=== PATIENT | male | born 1955 | race Caucasian/White ===

== ENCOUNTER 2017-10-17 22:26 | Emergency (ER) | payer MEDICAID ==
[2017-10-17] MEDS ORDERED: DIPHENHYDRAMINE HCL IV 50 MG/ML VIAL IVP ONE (22:34)
[2017-10-17] MEDS ORDERED: METHYLPREDNISOLONE PF 125MG/VIAL IVP ONE (22:34)
[2017-10-17] MEDS ORDERED: FAMOTIDINE IV 20 MG/2 ML VIAL IVP ONE (22:34)
--- NOTE | 2017-10-17 22:42 | Emergency Department Record ---
History of Present Illness - General Chief complaint: Allergic Reaction Stated complaint: ALLERGIC REACTION Time Seen by Provider: 10/17/17 22:34 Source: Patient Mode of Arrival: Ambulatory Limitations: No limitations - History of Present Illness Initial Comments: 61 yo male presents to ED for evaluation of progressively worsening tongue swelling for the past 2 hours. Patient reports that his symptoms began after eating dinner tonight at a restaurant. Patient reports similar symptoms 4 years ago related to Lisinopril, reports that he has not taken the medication since that time. Patient denies throat swelling, rash, or wheezing symptoms. Patient denies chest pain or recent illness. MD Complaint: Allergic reaction Onset/Timin -: Hour(s) Exposure: Food Symptoms: Orolingual swelling Severity: Moderate Treatment Prior to Arrival: None Previous Allergy History: Angioedema - Related Data Home Medications Medication Instructions Recorded Confirmed Last Taken Adalimumab [Humira] 20 mg SQ ASDIR 10/17/17 10/17/17 Unknown Amlodipine Besylate [Norvasc] 10 mg PO DAILY 10/17/17 10/17/17 Unknown Aspirin Chewable 81 mg PO DAILY 10/17/17 10/17/17 Unknown Bupropion HCl [Wellbutrin Sr] 150 mg PO BID 10/17/17 10/17/17 Unknown Colchicine [Colcrys] 0.6 mg PO Q12H PRN 10/17/17 10/17/17 Unknown Gemfibrozil [Lopid] 600 mg PO BID 10/17/17 10/17/17 Unknown Levothyroxine Sodium [Synthroid] 175 mcg PO DAILY 10/17/17 10/17/17 Unknown Metformin HCl 500 mg PO BID 10/17/17 10/17/17 Unknown Multivitamin [Multi-Vitamin Daily] 1 each PO DAILY 10/17/17 10/17/17 Unknown Omeprazole 20 mg PO DAILY 10/17/17 10/17/17 Unknown Pravastatin Sodium [Pravachol] 20 mg PO DAILY 10/17/17 10/17/17 Unknown Ranitidine HCl 150 mg PO BID 10/17/17 10/17/17 Unknown Sulfasalazine [Azulfidine] 500 mg PO BID 10/17/17 10/17/17 Unknown Allergies Allergy/AdvReac Type Severity Reaction Status Date / Time clindamycin Allergy SWELLING Verified 02/21/16 13:55 OF THE TONGUE lisinopril Allergy SWELLING Verified 02/21/16 13:55 OF THE TONGUE Review of Systems Constitutional: Denies: Chills, Fever, Malaise, Night sweats Eyes: Denies: Eye discharge, Eye pain ENT: Reports: Other (tongue swelling). Denies: Congestion, Ear pain, Epistaxis Respiratory: Denies: Cough, Dyspnea Cardiovascular: Denies: Chest pain, Dyspnea on exertion Endocrine: Denies: Fatigue, Heat or cold intolerance Gastrointestinal: Denies: Abdominal pain, Nausea, Vomiting Genitourinary: Denies: Incontinence, Retention Musculoskeletal: Denies: Arthralgia, Back pain, Gout, Joint swelling Skin: Denies: Bruising, Change in color Neurological: Denies: Abnormal gait, Confusion, Headache, Seizure Psychiatric: Denies: Anxiety Hematological/Lymphatic: Denies: Anemia, Blood Clots Past Medical History - SOCIAL HISTORY Smoking Status: Former smoker Alcohol Use Comment: a bottle of margarittas every 2 days, no alcohol for 3 days. - RESPIRATORY Hx Respiratory Disorders: No - CARDIOVASCULAR Hx Cardio Disorders: Yes Hx Hypertension: Yes (on meds good control) Comment:: high cholesterol - NEURO Hx Neuro Disorders: No - GI Hx GI Disorders: Yes Hx Reflux: Yes - Hx Genitourinary Disorders: No - ENDOCRINE Comment:: doesn't check blood sugars. - MUSCULOSKELETAL Hx Musculoskeletal Disorders: Yes Hx Arthritis: Yes (RA dx'd 10 years ago) Hx Gout: Yes Comment:: painful hands due to gout flare up - PSYCH Hx Psych Problems: No - HEMATOLOGY/ONCOLOGY Hx Hematology/Oncology Disorders: No Family Medical History Hx Alcohol Use: Father, Brother/Sister, Grandparents Hx Cancer: Grandparents Physical Exam - General General Appearance: Alert, Oriented x3, Cooperative, Moderate distress, Other ( Patient appears relaxed on examination, no respiratory distress noted.) Limitations: No limitations - Head Head exam: Atraumatic, Normocephalic, Normal inspection Head exam detail: negative: Abrasion, Contusion, Alonso's sign, General tenderness, Hematoma, Laceration - Eye Eye exam: Normal appearance. negative: Conjunctival injection, Periorbital swelling, Periorbital tenderness, Scleral icterus - ENT Ear exam: negative: Auricular hematoma, Auricular trauma Nasal Exam: negative: Active bleeding, Discharge, Dried blood, Foreign body Mouth exam: Tongue elevation. negative: Drooling, Laceration, Muffled voice Teeth exam: negative: Dental caries Throat exam: negative: Tonsillar erythema, Tonsillomegaly, R peritonsillar mass , L peritonsillar mass - Neck Neck exam: negative: Meningismus, Tenderness - Respiratory Respiratory exam: Normal lung sounds bilaterally. negative: Rales, Respiratory distress, Rhonchi, Stridor - Cardiovascular Cardiovascular Exam: Regular rate, Normal rhythm, Normal heart sounds - GI/Abdominal GI/Abdominal exam: Soft. negative: Rebound, Rigid, Tenderness - Rectal Rectal exam: Deferred - exam: Deferred - Extremities Extremities exam: Normal inspection. negative: Calf tenderness, Pedal edema, Tenderness - Back Back exam: Denies: CVA tenderness (R), CVA tenderness (L) - Neurological Neurological exam: Alert, Normal gait, Oriented X3 - Psychiatric Psychiatric exam: Normal affect, Normal mood - Skin Skin exam: Normal color. negative: Abrasion Type of lesion: negative: abrasion Course - Reevaluation(s) Reevaluation #1: 10/17/17 22:41 Patient was seen and examined, Solumedrol, Pepcid, and Benadryl ordered for reaction symptoms. Epinephrine is not felt to be of immediate benefit as the patient's reaction is not the result of anaphylaxis, but will monitor very closely. Reevaluation #2: 10/17/17 23:02 Patient was reassessed, reports that his symptoms are not worsening. Will monitor closely. Reevaluation #3: 10/17/17 23:34 Patient reassessed, reports that his symptoms are beginning to gradually improve. Reevaluation #4: 10/18/17 00:14 Patient was reassessed, reports that his symptoms may be worsening, airway is intact, patient ambulated to bathroom. Case was discussed with Dr. Rubi at [facility] ED, will accept transfer ED-ED for probable admission and close airway evaluation. Patient does not have any clinically apparent airway compromise currently. Critical Care Time Critical Care Time: Yes Total Critical Care Time: 60 Critical Care Time: Frequent reassessments for airway compromise, initiation for transfer for worsening symptoms. Disposition Disposition: Transfer Clinical Impression: Ludwigs angina Disposition: Acute Care Hospital Transfer Transfer To: [facility] Reason For Transfer: Airway compromise, likely ICU admission Accepting Physician: Greyson Time Discussed w/Accepting Physician: 00:19 Forms: Patient Portal Access Time of Disposition: 00:19 Quality - Quality Measures Quality Measures: N/A - Blood Pressure Screening Does Patient Have Any of the Following: Active Dx of HTN Blood Pressure Classification: Hypertensive Reading Systolic Measurement: 169 Diastolic Measurement: 95 Screening for High Blood Pressure: Patient Exclusion, Hx of HTN [G9744]
== END 2017-10-18 00:50 | disposition short-term general hospital (02) ==
LOC: ER 22:26
DX: K12.2 Cellulitis and abscess of mouth (principal); K14.0 Glossitis; I10 Essential (primary) hypertension; Z87.891 Personal history of nicotine dependence
CPT/HCPCS: 99285 ×2; 96374; 96375; J3490; J1200; J2930

== ENCOUNTER 2017-10-25 01:11 | Emergency (ER) | payer MEDICAID ==
[2017-10-25] MEDS ORDERED: DIPHENHYDRAMINE HCL IV 50 MG/ML VIAL IVP ONE (01:22)
[2017-10-25] MEDS ORDERED: METHYLPREDNISOLONE PF 125MG/VIAL IVP ONE (01:22)
[2017-10-25] MEDS ORDERED: FAMOTIDINE IV 20 MG/2 ML VIAL IVP ONE (01:22)
--- NOTE | 2017-10-25 01:33 | Emergency Department Record ---
History of Present Illness - General Chief complaint: Facial Swelling Stated complaint: LEFT SIDE OF LIPS SWOLLEN Time Seen by Provider: 10/25/17 01:18 Source: Patient, Family Mode of Arrival: Ambulatory Limitations: No limitations - History of Present Illness Initial Comments: pt c/o swelling of l side of mouth,lips and cheek. he had similar symptoms last week and was transferred to [facility] and watched in icu. MD Complaint: Facial swelling Onset/Timin -: Hour(s) Exposure: Unknown Symptoms: Lip swelling Severity: Moderate Treatment Prior to Arrival: None Previous Allergy History: Angioedema - Related Data Home Medications Medication Instructions Recorded Confirmed Last Taken Allopurinol [Allopurinol] 300 mg PO DAILY 10/25/17 10/25/17 Unknown Allergies Allergy/AdvReac Type Severity Reaction Status Date / Time clindamycin Allergy SWELLING Verified 02/21/16 13:55 OF THE TONGUE lisinopril Allergy SWELLING Verified 02/21/16 13:55 OF THE TONGUE Travel Screening - Travel/Exposure Within Last 30 Days Have you traveled within the last 30 days?: No - Travel/Exposure Within Last Year Have you traveled outside the [place] in the last year?: No - Additonal Travel Details Have you been exposed to anyone with a communicable illness?: No - Travel Symptoms Symptom Screening: None Review of Systems Reviewed: No additional complaints except as noted below Constitutional: Reports: As per HPI. Denies: Chills, Fever, Malaise, Night sweats, Weakness, Weight change Eyes: Reports: As per HPI. Denies: Eye discharge, Eye pain, Photophobia, Vision change ENT: Reports: As per HPI. Denies: Congestion, Dental pain, Ear pain, Epistaxis , Hearing loss, Throat pain Respiratory: Reports: As per HPI. Denies: Cough, Dyspnea, Hemoptysis, Stridor, Wheezes Cardiovascular: Reports: As per HPI. Denies: Arrhythmia, Chest pain, Dyspnea on exertion, Edema, Murmurs, Orthopnea, Palpitations, Paroxysmal nocturnal dyspnea, Rheumatic Fever, Syncope Endocrine: Reports: As per HPI. Denies: Fatigue, Heat or cold intolerance, Polydipsia, Polyuria Gastrointestinal: Reports: As per HPI. Denies: Abdominal pain, Constipation, Diarrhea, Hematemesis, Hematochezia, Melena, Nausea, Vomiting Genitourinary: Reports: As per HPI. Denies: Dysuria, Frequency, Hematuria, Incontinence, Retention, Testicular pain, Testicular mass, Urgency Musculoskeletal: Reports: As per HPI. Denies: Arthralgia, Back pain, Gout, Joint swelling, Myalgia, Neck pain Skin: Reports: As per HPI. Denies: Bruising, Change in color, Change in hair/ nails, Lesions, Pruritus, Rash Neurological: Reports: As per HPI. Denies: Abnormal gait, Confusion, Headache, Numbness, Paresthesias, Seizure, Tingling, Tremors, Vertigo, Weakness Psychiatric: Reports: As per HPI. Denies: Anxiety, Auditory hallucinations, Depression, Homicidal thoughts, Suicidal thoughts, Visual hallucinations Hematological/Lymphatic: Reports: As per HPI. Denies: Anemia, Blood Clots, Easy bleeding, Easy bruising, Swollen glands Past Medical History - SOCIAL HISTORY Smoking Status: Former smoker Alcohol Use: Occasional Drug Use: None - RESPIRATORY Hx Respiratory Disorders: No - CARDIOVASCULAR Hx Cardio Disorders: Yes Hx Hypertension: Yes (on meds good control) Comment:: high cholesterol - NEURO Hx Neuro Disorders: No - GI Hx GI Disorders: Yes Hx Reflux: Yes - Hx Genitourinary Disorders: No - ENDOCRINE Hx Endocrine Disorders: Yes Comment:: doesn't check blood sugars. - MUSCULOSKELETAL Hx Musculoskeletal Disorders: Yes Hx Arthritis: Yes (RA dx'd 10 years ago) Hx Gout: Yes Comment:: painful hands due to gout flare up - PSYCH Hx Psych Problems: No - HEMATOLOGY/ONCOLOGY Hx Hematology/Oncology Disorders: No Family Medical History Any Significant Family History?: Yes Hx Alcohol Use: Father, Brother/Sister, Grandparents Hx Cancer: Grandparents Physical Exam - General General Appearance: Alert, Oriented x3, Cooperative, Mild distress - Head Head exam: Normal inspection - Eye Eye exam: Normal appearance, PERRL, EOMI Pupils: Normal accommodation - ENT ENT exam: Normal exam, Mucous membranes moist, Normal external ear exam, Normal orophraynx Ear exam: Normal external inspection. negative: External canal tenderness Nasal Exam: Normal inspection. negative: Discharge, Sinus tenderness Mouth exam: Tongue elevation, Other (swelling of l lips) Teeth exam: Normal inspection. negative: Dental caries Throat exam: Other (swelling of uvula and soft palatte). negative: Tonsillar erythema, Tonsillar exudate - Neck Neck exam: Normal inspection, Full ROM. negative: Tenderness - Respiratory Respiratory exam: Normal lung sounds bilaterally. negative: Respiratory distress - Cardiovascular Cardiovascular Exam: Regular rate, Normal rhythm, Normal heart sounds - GI/Abdominal GI/Abdominal exam: Soft, Normal bowel sounds. negative: Tenderness - Rectal Rectal exam: Deferred - exam: Deferred - Extremities Extremities exam: Normal inspection, Full ROM, Normal capillary refill. negative: Tenderness - Back Back exam: Reports: Normal inspection, Full ROM. Denies: Muscle spasm, Rash noted, Tenderness - Neurological Neurological exam: Alert, CN II-XII intact, Normal gait, Oriented X3 - Psychiatric Psychiatric exam: Normal affect, Normal mood - Skin Skin exam: Dry, Intact, Normal color, Warm Course Vital Signs 10/25/17 01:13 Temperature 97.9 F Pulse Rate 83 Respiratory 20 Rate Blood Pressure 165/99 Pulse Ox 95 - Reevaluation(s) Reevaluation #1: 10/25/17 01:35 pt is having angioedema again with swelling of his uvula, soft palette and potential for airway compromise so he is being transferred to [facility] as he was last week. he was monitored in icu without etiology being concerned Reevaluation #2: 10/25/17 01:43 pt feels a little better Disposition Disposition: Transfer Clinical Impression: Angioedema Qualifiers: Encounter type: initial encounter Qualified Code(s): T78.3XXA - Angioneurotic edema, initial encounter Disposition: Acute Care Hospital Transfer Transfer To: [facility] Reason For Transfer: potential airway compromise Accepting Physician: dr goyal Time Discussed w/Accepting Physician: 01:39 Condition: (3) Guarded Quality - Quality Measures Quality Measures: N/A - Blood Pressure Screening Does Patient Have Any of the Following: Active Dx of HTN Blood Pressure Classification: Hypertensive Reading Systolic Measurement: 165 Diastolic Measurement: 99 Screening for High Blood Pressure: Patient Exclusion, Hx of HTN [G9744]
== END 2017-10-25 01:53 | disposition short-term general hospital (02) ==
LOC: ER 01:11
DX: T78.3XXA Angioneurotic edema, initial encounter (principal)
CPT/HCPCS: 99285 ×2; 96374; 96375; J3490; J1200; J2930

== ENCOUNTER 2019-02-08 02:39 | Emergency (ER) | payer MEDICAID ==
[2019-02-08] MEDS ORDERED: EPINEPHRINE 1 MG/ML AMPUL IM ONE (02:49)
[2019-02-08] MEDS ORDERED: DIPHENHYDRAMINE HCL 50 MG/ML VIAL IVP ONE (02:53)
[2019-02-08] MEDS ORDERED: METHYLPREDNISOLONE PF 125MG/VIAL IVP ONE (02:53)
--- NOTE | 2019-02-08 02:58 | Emergency Department Record ---
History of Present Illness - General Chief complaint: Facial Swelling Stated complaint: TONGUE SWELLING Time Seen by Provider: 02/08/19 02:44 Source: Patient Mode of Arrival: Ambulatory Limitations: No limitations - History of Present Illness Initial Comments: pt has severe angio edema of tongue. he has a hx of same and has been in the icu at [facility] before. no known etiology. it started an hour ago. he only took prednisone Onset/Timin -: Minutes(s) Exposure: Unknown Symptoms: Orolingual swelling Severity: Moderate Treatment Prior to Arrival: Steroids Previous Allergy History: Angioedema - Related Data Home Medications Medication Instructions Recorded Confirmed Last Taken Cetirizine HCl 10 mg PO DAILY 02/08/19 02/08/19 Unknown Allergies Allergy/AdvReac Type Severity Reaction Status Date / Time clindamycin Allergy SWELLING Verified 02/21/16 13:55 OF THE TONGUE lisinopril Allergy SWELLING Verified 02/21/16 13:55 OF THE TONGUE Travel Screening - Travel/Exposure Within Last 30 Days Have you traveled within the last 30 days?: No - Travel Symptoms Symptom Screening: None Review of Systems Reviewed: No additional complaints except as noted below Constitutional: Reports: As per HPI. Denies: Chills, Fever, Malaise, Night sweats, Weakness, Weight change Eyes: Reports: As per HPI. Denies: Eye discharge, Eye pain, Photophobia, Vision change ENT: Reports: As per HPI. Denies: Congestion, Dental pain, Ear pain, Epistaxis , Hearing loss, Throat pain Respiratory: Reports: As per HPI. Denies: Cough, Dyspnea, Hemoptysis, Stridor, Wheezes Cardiovascular: Reports: As per HPI. Denies: Arrhythmia, Chest pain, Dyspnea on exertion, Edema, Murmurs, Orthopnea, Palpitations, Paroxysmal nocturnal dyspnea, Rheumatic Fever, Syncope Endocrine: Reports: As per HPI. Denies: Fatigue, Heat or cold intolerance, Polydipsia, Polyuria Gastrointestinal: Reports: As per HPI. Denies: Abdominal pain, Constipation, Diarrhea, Hematemesis, Hematochezia, Melena, Nausea, Vomiting Genitourinary: Reports: As per HPI. Denies: Dysuria, Frequency, Hematuria, Incontinence, Retention, Testicular pain, Testicular mass, Urgency Musculoskeletal: Reports: As per HPI. Denies: Arthralgia, Back pain, Gout, Joint swelling, Myalgia, Neck pain Skin: Reports: As per HPI. Denies: Bruising, Change in color, Change in hair/ nails, Lesions, Pruritus, Rash Neurological: Reports: As per HPI. Denies: Abnormal gait, Confusion, Headache, Numbness, Paresthesias, Seizure, Tingling, Tremors, Vertigo, Weakness Psychiatric: Reports: As per HPI. Denies: Anxiety, Auditory hallucinations, Depression, Homicidal thoughts, Suicidal thoughts, Visual hallucinations Hematological/Lymphatic: Reports: As per HPI. Denies: Anemia, Blood Clots, Easy bleeding, Easy bruising, Swollen glands Past Medical History - SOCIAL HISTORY Smoking Status: Former smoker - RESPIRATORY Hx Respiratory Disorders: No - CARDIOVASCULAR Hx Cardio Disorders: Yes Hx Hypertension: Yes (on meds good control) Comment:: high cholesterol - NEURO Hx Neuro Disorders: No - GI Hx GI Disorders: Yes Hx Reflux: Yes - Hx Genitourinary Disorders: No - ENDOCRINE Hx Endocrine Disorders: Yes Comment:: doesn't check blood sugars. - MUSCULOSKELETAL Hx Musculoskeletal Disorders: Yes Hx Arthritis: Yes (RA dx'd 10 years ago) Hx Gout: Yes Comment:: painful hands due to gout flare up - PSYCH Hx Psych Problems: No - HEMATOLOGY/ONCOLOGY Hx Hematology/Oncology Disorders: No Family Medical History Any Significant Family History?: Yes Hx Alcohol Use: Father, Brother/Sister, Grandparents Hx Cancer: Grandparents Physical Exam - General General Appearance: Alert, Oriented x3, Cooperative, Severe distress - Head Head exam: Normal inspection - Eye Eye exam: Normal appearance, PERRL, EOMI Pupils: Normal accommodation - ENT ENT exam: Normal exam, Mucous membranes moist, Normal external ear exam, Normal orophraynx Ear exam: Normal external inspection. negative: External canal tenderness Nasal Exam: Normal inspection. negative: Discharge, Sinus tenderness Mouth exam: Muffled voice, Tongue elevation, Other (severe angio). negative: Tongue normal Teeth exam: Normal inspection. negative: Dental caries Throat exam: Normal inspection. negative: Tonsillar erythema, Tonsillar exudate - Neck Neck exam: Normal inspection, Full ROM. negative: Tenderness - Respiratory Respiratory exam: Normal lung sounds bilaterally. negative: Respiratory distress - Cardiovascular Cardiovascular Exam: Regular rate, Normal rhythm, Normal heart sounds - GI/Abdominal GI/Abdominal exam: Soft, Normal bowel sounds. negative: Tenderness - Rectal Rectal exam: Deferred - exam: Deferred - Extremities Extremities exam: Normal inspection, Full ROM, Normal capillary refill. negative: Tenderness - Back Back exam: Reports: Normal inspection, Full ROM. Denies: Muscle spasm, Rash noted, Tenderness - Neurological Neurological exam: Alert, CN II-XII intact, Normal gait, Oriented X3 - Psychiatric Psychiatric exam: Normal affect, Normal mood - Skin Skin exam: Dry, Intact, Normal color, Warm Course Vital Signs 02/08/19 02:42 Temperature 98.7 F Pulse Rate 96 H Respiratory 20 Rate Blood Pressure 166/92 Pulse Ox 97 Critical Care Time Critical Care Time: Yes Total Critical Care Time: 30 Disposition Disposition: Transfer Clinical Impression: Angioedema Qualifiers: Encounter type: initial encounter Qualified Code(s): T78.3XXA - Angioneurotic edema, initial encounter Disposition: Acute Care Hospital Transfer Transfer To: [facility] Reason For Transfer: severe angioedema Accepting Physician: dr escobar Time Discussed w/Accepting Physician: 03:01 Quality - Quality Measures Quality Measures: N/A - Blood Pressure Screening Does Patient Have Any of the Following: Active Dx of HTN Blood Pressure Classification: Hypertensive Reading Systolic Measurement: 166 Diastolic Measurement: 92 Screening for High Blood Pressure: Patient Exclusion, Hx of HTN [G9744]
== END 2019-02-08 03:10 | disposition short-term general hospital (02) ==
LOC: ER 02:39
DX: T78.3XXA Angioneurotic edema, initial encounter (principal); I10 Essential (primary) hypertension; Z87.891 Personal history of nicotine dependence
CPT/HCPCS: 96372; 96374; 96375; 99285; J0171; J1200; J2930

== ENCOUNTER 2019-08-22 00:01 | Emergency (ER) | payer MEDICAID ==
--- NOTE | 2019-08-22 00:36 | Emergency Department Record ---
History of Present Illness - General Chief complaint: Cold Stated complaint: SORE THROAT X 1/2 DAY Time Seen by Provider: 08/22/19 00:24 Source: Patient Mode of Arrival: Ambulatory Limitations: No limitations - History of Present Illness Initial comments: The patient is here due to an [address] The pain is mainly on the L side and there is no voice changes, fever, chills, CP or SOB but he does have a mild cough. MD complaint: Sore throat Onset/Timin -: Hour(s) Location: L ear, Throat Severity: Moderate Severity scale (1-10): 7 Quality: Burning Consistency: Intermittent Improves with: None Worsens with: Swallowing - Related Data Home Medications Medication Instructions Recorded Confirmed Last Taken Hydrocodone/Acetaminophen [[place] 1 tab PO Q6HR PRN MDD 4 08/22/19 08/22/19 Unknown 5-325 Tablet] Previous Rx's Medication Instructions Recorded Prednisone [Prednisone 20Mg] 40 mg PO DAILY #6 tab 08/22/19 Allergies Allergy/AdvReac Type Severity Reaction Status Date / Time clindamycin Allergy SWELLING Verified 02/21/16 13:55 OF THE TONGUE lisinopril Allergy SWELLING Verified 02/21/16 13:55 OF THE TONGUE Travel Screening - Travel/Exposure Within Last 30 Days Have you traveled within the last 30 days?: No - Travel/Exposure Within Last Year Have you traveled outside the [place] in the last year?: No - Additonal Travel Details Have you been exposed to anyone with a communicable illness?: No - Travel Symptoms Symptom Screening: None Review of Systems Constitutional: Denies: Chills, Fever, Malaise Eyes: Denies: Eye discharge ENT: Reports: Throat pain. Denies: Congestion Respiratory: Reports: Cough Cardiovascular: Denies: Chest pain Past Medical History - SOCIAL HISTORY Smoking Status: Former smoker - RESPIRATORY Hx Respiratory Disorders: No - CARDIOVASCULAR Hx Cardio Disorders: Yes Hx Hypertension: Yes (on meds good control) Comment:: high cholesterol - NEURO Hx Neuro Disorders: No - GI Hx GI Disorders: Yes Hx Reflux: Yes - Hx Genitourinary Disorders: No - ENDOCRINE Hx Endocrine Disorders: Yes Comment:: doesn't check blood sugars. - MUSCULOSKELETAL Hx Musculoskeletal Disorders: Yes Hx Arthritis: Yes (RA dx'd 10 years ago) Hx Gout: Yes Comment:: painful hands due to gout flare up - PSYCH Hx Psych Problems: No - HEMATOLOGY/ONCOLOGY Hx Hematology/Oncology Disorders: No Family Medical History Any Significant Family History?: Yes Hx Alcohol Use: Father, Brother/Sister, Grandparents Hx Cancer: Grandparents Physical Exam - General General Appearance: Alert, Oriented x3, Cooperative, No acute distress - Head Head exam: Atraumatic, Normocephalic, Normal inspection - Eye Eye exam: Normal appearance, PERRL - ENT ENT exam: TM's normal bilaterally Throat exam: Tonsillar erythema. negative: Normal inspection, Tonsillomegaly, Tonsillar exudate, R peritonsillar mass, L peritonsillar mass - Neck Neck exam: Normal inspection, Full ROM. negative: Lymphadenopathy, Meningismus, Tenderness - Respiratory Respiratory exam: Normal lung sounds bilaterally. negative: Respiratory distress - Cardiovascular Cardiovascular Exam: Regular rate, Normal rhythm, Normal heart sounds Course Vital Signs 08/22/19 00:12 Temperature 98.2 F Pulse Rate 90 Respiratory 18 Rate Blood Pressure 158/92 Pulse Ox 94 L - Reevaluation(s) Reevaluation #1: I did discuss the neg strep with the patient and the need for F/U. I did discuss the fact that I feel the patient has a viral URI. We will use a short course of Prednisone and have him see his PCP in 1-2 days. 08/22/19 01:19 Medical Decision Making - Data Complexity MDM Data: Labs Ordered and/or Reviewed - Lab Data Result diagrams: 08/22/19 00:45 08/22/19 00:45 Disposition Disposition: Discharge Clinical Impression: Pharyngitis Qualifiers: Pharyngitis/tonsillitis etiology: unspecified etiology Qualified Code(s): J02.9 - Acute pharyngitis, unspecified Disposition: Home, Self-Care Condition: (2) Stable Instructions: Pharyngitis (ED) Additional Instructions: Please use Tylenol or Motrin for pain and continue the Prednisone for 3 more days. Please see your doctor in 1-2 days for recheck and return to the ER for any worsening issues. Prescriptions: Prednisone [Prednisone 20Mg] 40 mg PO DAILY #6 tab Forms: Patient Portal Access Time of Disposition: 01:22 Quality - Quality Measures Quality Measures: N/A - Blood Pressure Screening View Details: Yes Does Patient Have Any of the Following: Active Dx of HTN Blood Pressure Classification: Hypertensive Reading Systolic Measurement: 158 Diastolic Measurement: 92 Screening for High Blood Pressure: Patient Exclusion, Hx of HTN [G9744]
[2019-08-22] MEDS ORDERED: IBUPROFEN 600 MG TABLET PO ONE (00:43)
[2019-08-22 00:54] LABS: ABSOLUTE NEUTROPHIL COUNT 5.07; HEMATOCRIT 40.7 % (42.0-52.0); HEMOGLOBIN 12.9 gm/dl (14.0-18.0); MEAN CELL VOLUME 86.2 fl (81-97); MEAN CORPUSCULAR HEMOGLOBIN 27.3 pg (27-33); MEAN CORPUSCULAR HGB CONC 31.7 g/dl (32-36); MEAN PLATELET VOLUME 9.9 fl (7.4-10.4); PLATELET COUNT 309 K/uL (130-400); RED BLOOD COUNT 4.72 M/uL (4.40-5.70); RED CELL DISTRIBUTION WIDTH 15.8 % (11.5-14.5); WHITE BLOOD COUNT W/O DIFF 10.2 K/uL (4.2-12.2)
[2019-08-22 01:01] LABS: BLOOD UREA NITROGEN 14 mg/dL (8-23)
[2019-08-22 01:02] LABS: CREATININE 1.1 mg/dL (0.7-1.2); EST GLOMERULAR FILTRATION RATE > 60 mL/min
[2019-08-22 01:04] LABS: GLUCOSE,RANDOM 161 mg/dL (74-109)
[2019-08-22 01:12] LABS: ANISOCYTOSIS 1+; PLATELET ESTIMATE NORMAL (NORMAL)
[2019-08-22] MEDS ORDERED: PREDNISONE 20 MG TAB PO ONE (01:17)
== END 2019-08-22 01:32 | disposition home or self-care (01) ==
LOC: ER 00:01
DX: J02.9 Acute pharyngitis, unspecified (principal); R05 Cough; I10 Essential (primary) hypertension; Z87.891 Personal history of nicotine dependence
CPT/HCPCS: 80048; 85027; 87880; 99283; J7512

== ENCOUNTER 2019-10-04 21:09 | Emergency (ER) | payer MEDICAID ==
[2019-10-04] MEDS ORDERED: METHYLPREDNISOLONE 80MG/VIAL IM ONE (21:13)
[2019-10-04] MEDS ORDERED: HYDROCODONE/APAP 5/325MG TABLET PO ONE (21:13)
--- NOTE | 2019-10-04 21:15 | Emergency Department Record ---
History of Present Illness - General Chief complaint: Extremity Problem Stated complaint: RT WRIST PAIN Time Seen by Provider: 10/04/19 21:10 Source: Patient, Family Mode of Arrival: Ambulatory Limitations: No limitations - History of Present Illness Initial comments: 63 yo male presents with right wrist pain. He has a history of RA. He has been off his [place] for over a month. He states he woke up with the pain this morning. No trauma, redness, fever, or significant swelling. He has been affected in this area in the past as well as the elbow. He has mild right elbow pain. No other recent changes in his health. He has pain with ROM. He has a PCP and Juvenile Probation Officer. He stopped his V[place]ka because of a cold last month. MD Complaint: Joint pain -: Days(s) (1) Location: Right, Forearm History of Same: Yes -: Yes Arthralgia Radiation: Distal Quality: Aching Consistency: Constant Improves with: Immobilization Worsens with: Palpation, Weight bearing Associated Symptoms: Arthralgias - Related Data Previous Rx's Medication Instructions Recorded Methylprednisolone [Medrol Dose 0 mg PO UD #1 tab.ds.pk 10/04/19 Pack] Allergies Allergy/AdvReac Type Severity Reaction Status Date / Time clindamycin Allergy SWELLING Verified 02/21/16 13:55 OF THE TONGUE lisinopril Allergy SWELLING Verified 02/21/16 13:55 OF THE TONGUE Review of Systems Constitutional: Denies: Chills, Fever, Malaise, Weakness Eyes: Denies: Eye discharge, Eye pain, Vision change ENT: Denies: Congestion, Throat pain Respiratory: Denies: Cough, Dyspnea Cardiovascular: Denies: Chest pain, Palpitations, Syncope Endocrine: Denies: Fatigue Gastrointestinal: Denies: Abdominal pain, Diarrhea, Nausea, Vomiting Genitourinary: Denies: Dysuria, Frequency, Hematuria Musculoskeletal: Reports: Arthralgia, Joint swelling. Denies: Back pain, Myalgia Skin: Reports: Rash (chest, saw PCP regarding rash). Denies: Bruising, Change in color Neurological: Denies: Numbness, Tingling, Weakness Psychiatric: Denies: Anxiety Hematological/Lymphatic: Denies: Easy bleeding, Easy bruising, Swollen glands Past Medical History - SOCIAL HISTORY Smoking Status: Former smoker - RESPIRATORY Hx Respiratory Disorders: No - CARDIOVASCULAR Hx Cardio Disorders: Yes Hx Hypertension: Yes (on meds good control) Comment:: high cholesterol - NEURO Hx Neuro Disorders: No - GI Hx GI Disorders: Yes Hx Reflux: Yes - Hx Genitourinary Disorders: No - ENDOCRINE Hx Endocrine Disorders: Yes Comment:: doesn't check blood sugars. - MUSCULOSKELETAL Hx Musculoskeletal Disorders: Yes Hx Arthritis: Yes (RA dx'd 10 years ago) Hx Gout: Yes Comment:: painful hands due to gout flare up - PSYCH Hx Psych Problems: No - HEMATOLOGY/ONCOLOGY Hx Hematology/Oncology Disorders: No Family Medical History Hx Alcohol Use: Father, Brother/Sister, Grandparents Hx Cancer: Grandparents Physical Exam - General General Appearance: Alert, Oriented x3, Cooperative, No acute distress Limitations: No limitations - Head Head exam: Atraumatic, Normal inspection - Eye Eye exam: Normal appearance, PERRL. negative: Conjunctival injection, Scleral icterus - ENT ENT exam: Normal exam, Mucous membranes moist Ear exam: Normal external inspection Nasal Exam: Normal inspection Mouth exam: Normal external inspection - Neck Neck exam: Normal inspection - Respiratory Respiratory exam: Normal lung sounds bilaterally. negative: Respiratory distress - Cardiovascular Cardiovascular Exam: Regular rate, Normal rhythm, Normal heart sounds Peripheral Pulses: 2+: Radial (R) - Rectal Rectal exam: Deferred - exam: Deferred - Extremities Extremities exam: Joint swelling (minimal right wrist swelling compared to the left, no warmth or redness, pain with ROM), Tenderness. negative: Normal inspection, Full ROM - Back Back exam: Reports: Normal inspection, Full ROM. Denies: CVA tenderness (R), CVA tenderness (L) - Neurological Neurological exam: Alert, Oriented X3 - Psychiatric Psychiatric exam: Normal affect, Normal mood. negative: Agitated, Anxious - Skin Skin exam: Dry, Intact, Normal color, Warm Course - Reevaluation(s) Reevaluation #1: 10/04/19 21:35 The XR was reviewed. Significant degernative changes noted We discussed home care and follow up with his PCP Disposition Disposition: Discharge Clinical Impression: Wrist arthralgia Qualifiers: Laterality: right Qualified Code(s): M25.531 - Pain in right wrist Disposition: Home, Self-Care Condition: (1) Good Instructions: Rheumatoid Arthritis (ED) Additional Instructions: Call your Juvenile Probation Officer for close follow up the wrist pain to discuss your medications Be seen if you have fever, worse pain, or any new concerns or symptoms Use the splint for support and comfort Ice the wrist 3-4 times daily Prescriptions: Methylprednisolone [Medrol Dose Pack] 0 mg PO UD #1 tab.ds.pk Forms: Patient Portal Access Time of Disposition: 21:36 Quality - Quality Measures Quality Measures: N/A - Blood Pressure Screening Does Patient Have Any of the Following: Active Dx of HTN Blood Pressure Classification: Pre-Hypertensive BP Reading Systolic Measurement: 169 Diastolic Measurement: 88 Screening for High Blood Pressure: Patient Exclusion, Hx of HTN [G9744] Pre-Hypertensive Follow-up Interventions: Referral to alternative/primary care provider.
--- NOTE | 2019-10-04 21:41 | RADIOLOGY REPORT ---
EXAMINATION: Right Wrist Complete, Minimum Three Views EXAM DATE: 10/04/2019 9:36 PM TECHNIQUE: PA, lateral, and oblique INDICATION: Nontraumatic right wrist pain. COMPARISON: None ENCOUNTER: Initial FINDINGS: No acute fracture or dislocation. Carpal alignment is normal. Small osteophytes at the distal radioul celso joint. Mildly decreased spacing between the carpal bones. Small dorsal osteophytes. Generalized o steopenia. IMPRESSION: 1. Osteoarthritic changes. 2. No acute osseous abnormality. Dictated by: Cody Handy MD on 10/04/2019 9:38 PM. .
== END 2019-10-04 21:56 | disposition home or self-care (01) ==
LOC: ER 21:09
DX: M25.531 Pain in right wrist (principal); I10 Essential (primary) hypertension; Z87.891 Personal history of nicotine dependence; M06.9 Rheumatoid arthritis, unspecified
CPT/HCPCS: 96372; 99284; J1040